=== PATIENT | female | born 1945 | race Caucasian/White ===

== ENCOUNTER → 2017-06-01 | Outpatient (CLI) | payer MEDICARE ==
[2017-06-01 13:20] LABS: HCT 36.6 % (34.0-46.0); HGB 11.7 gm/dL (11.4-16.0); MCH 28.9 pg (25.0-35.0); MCV 90.4 fL (80.0-100.0); Mean Platelet Volume 9.4; Platelet Count 229 k/uL (150-450); RBC 4.05 m/uL (3.80-5.40); RDW 13.9 % (11.5-15.5); WBC 4.2 k/uL (3.8-10.6)
[2017-06-01 13:25] LABS: Partial Thromboplastin Time 24.2 sec (22.0-30.0); Prothrombin Time 9.9 sec (9.0-12.0)
[2017-06-01 13:28] LABS: Albumin 4.6 g/dL (3.5-5.0); Calcium 10.8 mg/dL (8.4-10.2); Total Bilirubin 0.5 mg/dL (0.2-1.3); Total Protein 7.8 g/dL (6.3-8.2)
[2017-06-01 13:37] LABS: Amorphous Sediment,Urine Rare /hpf; Granular Casts,Urine 3 /lpf (0); Hyaline Casts,Urine 3 /lpf (0-2); Mucus,Urine Rare /hpf; RBC,Urine 3 /hpf (0-5); Squamous Epithelial Cell,Urine <1 /hpf (0-4); WBC,Urine <1 /hpf (0-5)
[2017-06-01 14:11] LABS: Appearance,Urine Clear (Clear); Bilirubin,Urine Negative (Negative); Blood,Urine Negative (Negative); Color,Urine Yellow; Glucose,Urine (UA) Negative (Negative); Ketones,Urine Negative (Negative); Leukocyte Esterase,Urine Negative (Negative); Nitrite,Urine Negative (Negative); Protein,Urine Negative (Negative); Specific Gravity,Urine 1.018 (1.001-1.035); Urobilinogen,Urine <2.0 mg/dL (<2.0)
== END | disposition home or self-care (01) ==
LOC: LABPAT 12:25
PROVIDERS: ATTEND Orthopaedic Surgery
DX: Z01.812 Encounter for preprocedural laboratory examination (principal)
CPT/HCPCS: 36415; 80053; 81003; 85027; 85610; 85730; 87070

== ENCOUNTER → 2017-06-18 | Outpatient (CLI) | payer MEDICARE | LOC: LABPAT 14:19 | PROVIDERS: ATTEND Orthopaedic Surgery | DX: Z01.812 Encounter for preprocedural laboratory examination (principal) | CPT/HCPCS: 36415; 86850; 86900; 86901 ==

== ENCOUNTER 2017-06-26 09:50 | Inpatient (IN) | payer MEDICARE ==
[~2017-06-26 09:50] MED LIST: ACETAMINOPHEN TAB 500 MG TAB PO ONE; DEXAMETHASONE SOD PHOSPHATE 10 MG/ML 1 ML VIAL IV ONE; LACTATED RINGERS 1,000 ML IV SCH; MELOXICAM 7.5 MG TAB PO ONE; MIDAZOLAM 2 MG/2 ML VIAL IV PRN; ONDANSETRON 4 MG/2 ML VIAL IVP ONE; ROPIVACAINE 246.25 MG, EPINEPHrine 0.5 MG, KETOROLAC 30 MG, cloNIDine HCL/PF 80 MCG, WA... MISCELLANE ONE; TRANEXAMIC ACID 1,000 MG in SODIUM CHLORIDE 0.9% 50 ML IVPB ONE; ceFAZolin IN SWFI 2 GM/20 ML SYRINGE IVP ONE; fentaNYL (PF) 50 MCG/ML 2 ML AMP IV PRN
[2017-06-26] MEDS ORDERED: LIDOCAINE 1% 20 ML VIAL (10MG/ML) FOR IV START INTRADERMA ONE (11:47)
[2017-06-26] MEDS ORDERED: fentaNYL (PF) 50 MCG/ML 2 ML AMP ONE (12:23)
[2017-06-26] MEDS ORDERED: PROPOFOL 10 MG/ML 20 ML VIAL IV ONE (12:23)
[2017-06-26] MEDS ORDERED: HEPARIN SODIUM,PORCINE 10,000 UNIT/ML 1 ML VIAL ONE (12:23)
[2017-06-26] MEDS ORDERED: TRANEXAMIC ACID 1,000 MG/10 ML VIAL ONE (12:23)
[2017-06-26] MEDS ORDERED: MIDAZOLAM 2 MG/2 ML VIAL ONE (12:23)
[2017-06-26] MEDS ORDERED: SODIUM CHLORIDE 0.9% 100 ML BAG ONE (12:23)
[2017-06-26] MEDS ORDERED: ePHEDrine SULFATE/0.9% NACL/PF 50 MG/5 ML SYRINGE IV ONE (12:23)
[2017-06-26] MEDS ORDERED: PHENYLEPHRINE-0.9% NACL SYG 1 MG/10 ML SYRINGE ONE (12:23)
[2017-06-26] MEDS ORDERED: LACTATED RINGERS 1,000 ML BAG IV ONE (12:23)
[2017-06-26] MEDS ORDERED: LACTATED RINGERS 1,000 ML IV ONE (13:35)
--- NOTE | 2017-06-26 14:00 | P.OP ---
Date of Procedure: 06/26/17 Preoperative Diagnosis: Severe osteoarthritis right hip Postoperative Diagnosis: Severe osteoarthritis right hip Procedure(s) Performed: Right total hip arthroplasty with a direct anterior approach Implants: Gtz and nephew Polarstem size 4 standard Gtz & Nephew R3, 3 hole acetabular shell, 48 mm Gtz & Nephew reflection 6.5 mm cancellus screw, 20 mm 2 Gtz & Nephew R3, XLPE 20 acetabular liner Gtz & Nephew Oxinium femoral head 32 m, +0 All components were press-fit. The articulation is Oxinium on polyethylene. Anesthesia: spinal Surgeon: Harvey Bruner Motor Transport Inspector #1: Catie Davis Estimated Blood Loss (ml): 100 Pathology: other (Femoral head) Condition: stable Disposition: PACU Indications for Procedure: After failure of conservative treatment we discussed the surgical and nonsurgical treatment options at length. Patient wishes to proceed with a total hip arthroplasty with a direct anterior approach. Complications specific to this procedure were discussed at length, including but not limited to infection, leg length discrepancy, dislocation, and nerve injury. Patient is aware of all these complications and informed consent was obtained Operative Findings: The operative findings are consistent with severe osteoarthritis of the right hip Description of Procedure: Patient was seen and evaluated in the preoperative area, consent was reviewed, and the surgical site was marked with a skin marker. Patient was then brought to the operating room and given prophylactic antibiotics intravenously. 1 g of Tranexamic acid was also given. A spinal anesthetic was administered by the anesthesia department. The patient was then placed on the [place] table with the bony prominences well-padded. The hip area was then prepped and draped in usual sterile fashion. A universal timeout was then performed, which confirmed the patient's name, surgical site, ALLERGIES, and procedure being performed. Next the incision site was located at 1 cm distal and 1 cm lateral to the anterior superior iliac spine. The skin and subcutaneous tissues were sharply incised. Incision was carefully dissected down to the fascia overlying the tensor fascia claudia muscle. This fascia was then incised in line with the incision. Next, using blunt finger dissection, the tensor fascia claudia muscle was dissected off its investing fascia. The muscle was then carefully retracted laterally with a cobra retractor over the lateral neck of the femur. Next, the circumflex vessels were identified and cauterized using the AquaMantis device. The anterior hip capsule was then exposed. The capsule was then opened and an inverted T fashion. Cobra retractors were then placed intracapsularly. The proximal femur was then visualized. The femoral neck was then osteotomized appropriate level above the lesser trochanter. Small amount of traction was placed with the [place] table. A small wedge of bone was then removed from the remaining femoral head. Next, using a corkscrew femoral head was easily removed from the acetabulum. On gross visual inspection, the femoral head had complete loss of articular cartilage in multiple periarticular osteophytes. Attention was then turned to the acetabulum. the acetabulum was exposed and any remaining labrum was excised. Sequential reaming of the acetabulum was performed using fluoroscopic guidance. When the appropriate size was reached, a trial was then placed. The position and fit of the trial was checked with fluoroscopy. The trial was then removed. Then, using fluoroscopic guidance, the final implant was impacted at 20 of anteversion and 40 of abduction, and fully seated in the acetabulum. 2 screws were then placed in the acetabulum. Again fluoroscopy was used to check position of the screws. Next, the liner was then impacted, with a 20 elevated liner located in the anterior superior quadrant. Component locking was confirmed. Attention was then directed to the femur. With the aid of the [place] table, the femur was externally rotated to approximately 130, extended, and abducted under the opposite leg. A side hook was then placed under the proximal femur, and the side hook elevator was used to elevate the proximal femur. Retractors were then placed. A capsular release was performed, as well as a release of the conjoined tendon, which afforded excellent visualization of the proximal femur. Next, a box osteotome was used to lateralize the proximal femur. A hand crown pouncer was then used to locate the femoral canal. Sequential broaching was then performed with appropriate size which afforded excellent fixation in the proximal femur. A trial was then placed with appropriate head and neck, and the hip was gently reduced with the aid of the [place] table. Fluoroscopy was then used to check position of the components, as well as to ensure equal leg lengths. The hip was then gently dislocated and the trials were then removed. Final implants were then impacted and the hip was again reduced. Final fluoroscopic x-rays confirmed that the components were in anatomic position, as well as equal leg lengths. The hip was also taken through range of motion, and found to be stable. The hip was then copiously irrigated with antibiotic solution with pulsatile lavage. The hip was then irrigated with Irrisept solution. The soft tissues were then injected with a ropivacaine solution, which consisted of 246.25 mg of ropivacaine, 0.5 mg of epinephrine, 30 mg of Toradol, 80 g of clonidine, and 48.45 mL of sterile water, for a total of 100 mL of fluid injected. A second dose of 1 g of Tranexamic acid was also given. the fascia was then closed with 2-0 strata fix suture. The subcutaneous tissue was closed with 3-0 Vicryl. The subcuticular tissue was closed with 3-0 strata fix suture. The skin was then closed with Dermabond glue and a sterile silver dressing. The patient was then transferred to the recovery room in stable condition. The legal assistant FEI Maradiaga was required due to the complexity of surgery, and the need for skilled surgical services assistant for positioning, draping, exposure, retraction, and closure of the wound.
--- NOTE | 2017-06-26 14:06 | FL ---
Fluoroscopy INDICATION: Pain FINDINGS: Fluoroscopy time: 54 seconds. Images obtained: 4. IMPRESSIONS: 1. Documentation of fluoroscopy.
--- NOTE | 2017-06-26 14:06 | XR ---
Fluoroscopy INDICATION: Right hip replacement, pain FINDINGS: Fluoroscopy time: 54 seconds. Images obtained: 4. IMPRESSIONS: 1. Documentation of fluoroscopy.
[2017-06-26] MEDS ORDERED: HYDROmorphone 0.5 MG/0.5 ML SYRINGE IVP PRN ×3 (14:17)
[2017-06-26] MEDS ORDERED: HYDROcodone/APAP 5-325MG 1 EACH TAB PO PRN (14:17)
[2017-06-26] MEDS ORDERED: NALOXONE 0.4 MG/ML 1 ML VIAL IV PRN (14:17)
[2017-06-26] MEDS ORDERED: DIAZEPAM 5 MG TAB PO PRN ×2 (14:17)
[2017-06-26] MEDS ORDERED: ONDANSETRON 4 MG/2 ML VIAL IVP PRN (14:17)
[2017-06-26] MEDS ORDERED: MAGNESIUM HYDROXIDE 2,400 MG/10 ML CUP PO PRN (14:17)
[2017-06-26] MEDS ORDERED: hydrOXYzine PAMOATE 25 MG CAP PO PRN (14:17)
--- NOTE | 2017-06-26 14:25 | XR ---
EXAMINATION TYPE: XR Hip Limited RT DATE OF EXAM: 06/26/2017 COMPARISON: NONE HISTORY: Right hip prosthesis placement TECHNIQUE: Single AP view right hip FINDINGS: Postsurgical changes are within the soft tissues. There is a right femoral component and ac etabular component which is been placed. No acute fractures are evident. IMPRESSION: 1. No acute fractures post right hip replacement.
[2017-06-26] MEDS: HYDROcodone/APAP 5-325MG 1 EACH TAB PO PRN ×2 (17:22→23:35)
[2017-06-26] MEDS: SODIUM CHLORIDE 0.9% 1,000 ML IV SCH (17:24)
--- NOTE | 2017-06-26 18:08 | CONS ---
CONSULTATION REASON FOR CONSULTATION: Advice regarding hypertension, hyperlipidemia, requested by Orthopedic Surgery. HISTORY OF PRESENT ILLNESS: This 72-year-old woman with past medical history of hypertension, hyperlipidemia, history of DJD, history of bladder surgery, history of hysterectomy, being followed by Dr. Marc in the outpatient setting, was admitted after right total hip joint arthroplasty. There is no history of chest pain, palpitation, headache, loss of consciousness, seizures, nausea, vomiting, diarrhea, fever, rigor or chills. PAST MEDICAL HISTORY: 1. Hypertension. 2. Hyperlipidemia. 3. History of DJD. HOME MEDICATIONS: The home medications, which are reviewed, include: 1. Triamterene (Dyazide) 1 p.o. daily. 2. Pravachol 20 mg at bedtime. 3. Ditropan XL 10 mg daily. 4. Procardia XL 60 mg daily. 5. Multivitamins 1 p.o. daily. 6. Tricor 145 mg p.o. daily. 7. Calcium 1200 mg p.o. daily. 8. Tylenol 650 q.8 p.r.n. ALLERGIES: NONE. FAMILY HISTORY: History of colon cancer. SOCIAL HISTORY: No history of smoking. REVIEW OF SYSTEMS: ENT: No diminished hearing. No diminished vision. CARDIOVASCULAR SYSTEM: No angina, palpitations. RESPIRATORY SYSTEM: No cough, hemoptysis. GI: No nausea, vomiting. : No dysuria or retention. NERVOUS SYSTEM: No numbness, weakness. ALLERGY/IMMUNOLOGY: No asthma, hayfever. MUSCULOSKELETAL: As mentioned earlier. HEMATOLOGY/ONCOLOGY: No history of anemia. ENDOCRINE: No history of diabetes, hypothyroidism. CONSTITUTIONAL: As mentioned earlier. DERMATOLOGY: Negative. RHEUMATOLOGY: Negative. PSYCHIATRY: As mentioned earlier. PHYSICAL EXAMINATION: Patient is alert and oriented x3. Pulse is 83, blood pressure 133/61, respirations 16, temperature 98 degrees, pulse ox 94% on room air. HEENT: Conjunctivae normal. Oral mucosa moist. NECK: No jugular venous distention. No carotid bruit. No lymph node enlargement. CARDIOVASCULAR SYSTEM: S1, S2 muffled. No S3. No S4. RESPIRATORY SYSTEM: Breath sounds diminished at the bases. No rhonchi. No crackles. ABDOMEN: Soft, non-tender. No mass palpable. LEGS: Status post hip arthroplasty, right. NERVOUS SYSTEM: Higher functions as mentioned earlier. Moves all 4 limbs. No focal motor or sensory deficit. LYMPHATIC: No lymph node palpable in neck or axillae. SKIN: No ulcer, rash, bleeding. LABS: Not available at this time. The previous labs prior to surgery showed hematology, coags and chemistry essentially within normal limits. ASSESSMENT: 1. Status post right total hip joint arthroplasty. 2. Hypertension. 3. Hyperlipidemia. 4. History of degenerative joint disease. 5. History of right breast cancer. RECOMMENDATIONS AND DISCUSSION: In this 72-year-old woman who presented with multiple complex medical issues, we will monitor the patient closely, continue the current medications, continue symptomatic treatment. Otherwise I would recommend resuming the home medications and closely monitor. DVT prophylaxis. Incentive spirometry. The patient may be asked to follow with Dr. Marc closely after discharge. Thank you, Dr. Bruner, for letting us participate in the care of this patient. MMEVELIAL / CASSANDRAN: [id number] /
[2017-06-26 20:08] VITALS: RESP 18
[2017-06-26 20:15] VITALS: BMI 23.3
[2017-06-26] MEDS: ceFAZolin IN SWFI 2 GM/20 ML SYRINGE IVP SCH (20:15)
[2017-06-26] MEDS: ASPIRIN 325 MG TAB PO SCH (20:15)
[2017-06-26] MEDS ORDERED: PRAVASTATIN SODIUM 20 MG TAB PO SCH (21:00)
[2017-06-26] MEDS ORDERED: SENNOSIDES-DOCUSATE SODIUM 1 EACH TAB PO SCH (21:00)
[2017-06-27] MEDS: ceFAZolin IN SWFI 2 GM/20 ML SYRINGE IVP SCH (05:12)
[2017-06-27] MEDS: SODIUM CHLORIDE 0.9% 1,000 ML IV SCH (05:13)
[2017-06-27] MEDS: HYDROcodone/APAP 5-325MG 1 EACH TAB PO PRN ×2 (07:41→13:31)
[2017-06-27 07:42] VITALS: BP 116/58; TEMP 98.9
[2017-06-27 07:49] LABS: Basophils % (A) 1 %; Eosinophils % (A) 1 %; HCT 30.2 % (34.0-46.0); Lymphocytes # (A) 1.4 k/uL (1.0-4.8); Lymphocytes % (A) 32 %; MCH 28.6 pg (25.0-35.0); MCHC 32.3 g/dL (31.0-37.0); MCV 88.5 fL (80.0-100.0); Mean Platelet Volume 7.8; Monocytes # (A) 0.5 k/uL (0-1.0); Monocytes % (A) 10 %; Neutrophils # (A) 2.4 k/uL (1.3-7.7); Neutrophils % (A) 53 %; Platelet Count 239 k/uL (150-450); RBC 3.42 m/uL (3.80-5.40); RDW 13.4 % (11.5-15.5); WBC 4.5 k/uL (3.8-10.6)
[2017-06-27 07:54] LABS: HGB 9.8 gm/dL (11.4-16.0)
[2017-06-27 08:41] VITALS: PULSE 70
--- NOTE | 2017-06-27 08:59 | P.DS ---
Providers Date of admission: 06/26/17 11:10 Expected date of discharge: 06/27/17 Attending physician: Harvey Bruner Consults: 06/26/17 14:17 Consult Physician Routine Consulting Provider: Carmen Marc Consult Reason/Comments: medical management Do you want consulting provider notified?: Yes 06/26/17 15:17 Consult Physician Routine Consulting Provider: Bunny Plascencia Consult Reason/Comments: medical management Do you want consulting provider notified?: Yes Primary care physician: Carmen Marc - Discharge Diagnosis(es) (1) Primary osteoarthritis of right hip Current Visit: Yes Status: Acute (2) S/P total hip arthroplasty Current Visit: Yes Status: Acute Hospital Course: This is a 72-year-old female with known history of degenerative arthritis of the right hip. The patient presents for evaluation. After discussion and consideration patient elects to proceed with total hip arthroplasty. The patient is seen preoperatively by Dr. Bruner and medically cleared for surgery by their primary care physician. Patient is admitted to [facility] on 06/26/2017 for total hip arthroplasty. The procedures performed without complication or sequelae. The patient is doing well postoperatively. Labs and vital signs are stable on day of discharge. On day of discharge patient's hip incision is healing well. There is minimal erythema. There is no drainage noted at this time. There is minimal soft tissue swelling to the hip and thigh. Patient has full foot and ankle motion without difficulty or pain. Neurovascular status to the right lower extremity is intact. Patient is discharged home in good condition. Please see med rec for accurate list of home medications. Plan - Discharge Summary Discharge Rx Participant: Yes New Discharge Prescriptions: New Aspirin 325 mg PO BID #60 tab HYDROcodone/APAP 5-325MG [[place] 5-325] 1 - 2 tab PO Q4-6H PRN #90 tab PRN Reason: Pain Sennosides [Senokot] 1 tab PO BID #60 tablet No Action Oxybutynin Chloride [Ditropan XL] 10 mg PO DAILY Triamterene-Hctz 37.5-25Mg [Dyazide 37.5-25 Capsule] 1 cap PO DAILY Pravastatin Sodium [Pravachol] 20 mg PO HS NIFEdipine [Procardia XL] 60 mg PO DAILY Multivit-Min/Iron/Folic/Lutein [Centrum Silver Women Tablet] 1 tab PO DAILY Fenofibrate Nanocrystallized [Tricor] 145 mg PO DAILY Calcium Carbonate [Calcium] 1,200 mg PO DAILY Acetaminophen [Tylenol Arthritis] 650 mg PO Q8HR PRN PRN Reason: Pain Discharge Medication List Acetaminophen [Tylenol Arthritis] 650 mg PO Q8HR PRN 06/05/17 [History] Calcium Carbonate [Calcium] 1,200 mg PO DAILY 06/05/17 [History] Fenofibrate Nanocrystallized [Tricor] 145 mg PO DAILY 06/05/17 [History] Multivit-Min/Iron/Folic/Lutein [Centrum Silver Women Tablet] 1 tab PO DAILY 02/22 [History] NIFEdipine [Procardia XL] 60 mg PO DAILY 06/05/17 [History] Oxybutynin Chloride [Ditropan XL] 10 mg PO DAILY 06/05/17 [History] Pravastatin Sodium [Pravachol] 20 mg PO HS 06/05/17 [History] Triamterene-Hctz 37.5-25Mg [Dyazide 37.5-25 Capsule] 1 cap PO DAILY 06/05/17 [ History] Aspirin 325 mg PO BID #60 tab 06/27/17 [Rx] HYDROcodone/APAP 5-325MG [[place] 5-325] 1 - 2 tab PO Q4-6H PRN #90 tab 06/27/17 [ Rx] Sennosides [Senokot] 1 tab PO BID #60 tablet 06/27/17 [Rx] Follow up Appointment(s)/Referral(s): Harvey Bruner DO [Doctor of Osteopathic Medicine] - 2 Weeks Activity/Diet/Wound Care/Special Instructions: Weightbearing as tolerated with walker Leave dressing intact. Dressing may be removed by home care nurse in 10 days. May shower with dressing on. Follow-up with [facility] in 2 weeks, please call with any questions or concerns [phone] Discharge Disposition: HOME WITH HOME HEALTH SERVICES
[2017-06-27] MEDS ORDERED: TRIAMTERENE-HCTZ 37.5-25MG 1 EACH CAP PO SCH (09:00)
[2017-06-27] MEDS ORDERED: FENOFIBRATE 160 MG TAB PO SCH (09:00)
[2017-06-27] MEDS ORDERED: MELOXICAM 7.5 MG TAB PO SCH (09:00)
[2017-06-27] MEDS ORDERED: OXYBUTYNIN 10 MG TAB.ER.24 PO SCH (09:00)
[2017-06-27] MEDS: ASPIRIN 325 MG TAB PO SCH (10:11)
[2017-06-27] MEDS ORDERED: CALCIUM CARBONATE 500 MG CHEWABLE PO SCH (12:00)
[2017-06-27] MEDS ORDERED: MULTIVITAMINS, THERA 1 EACH TAB PO SCH (12:00)
--- NOTE | 2017-06-27 15:30 | PN ---
PROGRESS NOTE DATE OF SERVICE: 06/27/2017 This is a 72-year-old woman who was admitted after right total knee arthroplasty, improved significantly. No chest pain, no palpitation, no fever. Orthopedics is following the patient closely. The blood pressure is well-controlled. PHYSICAL EXAM: Alert and oriented x3, pulse 79, blood pressure 116/58, respiration 18, temperature 98.9, pulse ox 97% on room air. HEENT: Conjunctivae normal. NECK: No jugular venous distension. CARDIOVASCULAR SYSTEM: S1, S2, muffled. RESPIRATORY: Breath sounds diminished at the bases, no rhonchi, no crackles. ABDOMEN: Soft, nontender. No mass palpable. LEGS: Status post hip surgery. NERVOUS SYSTEM: Higher functions as mentioned earlier. Moves all four limbs. LYMPHATICS: No lymph nodes enlargement in the neck or axillae. SKIN: No ulcer, rash or bleeding. LABS: Hemoglobin 9.8. ASSESSMENT: 1. Status post right total knee arthroplasty. 2. Hypertension. 3. Hyperlipidemia. 4. Degenerative joint disease. 5. History of right breast cancer. RECOMMENDATION: Continue current management and symptomatic treatment. Otherwise monitor closely and DVT prophylaxis. Incentive spirometry. Further recommendations to follow. MMODL / IJN: [id number] /
== END 2017-06-27 14:10 | disposition home health service (06) | DRG 470 ==
LOC: 2ORMAIN 11:10 → 3SUR 14:42
PROVIDERS: ADMIT Orthopaedic Surgery; ATTEND Orthopaedic Surgery
PROC: 0SR902Z Replacement of Right Hip Joint with Metal on Polyethylene Synthetic Substitute, Open Approach (ICD-10-PCS; principal; 2017-06-26 12:45)
DX: M16.11 Unilateral primary osteoarthritis, right hip (principal); E78.5 Hyperlipidemia, unspecified; I10 Essential (primary) hypertension; Z96.651 Presence of right artificial knee joint; Z79.899 Other long term (current) drug therapy; Z85.3 Personal history of malignant neoplasm of breast; Z90.710 Acquired absence of both cervix and uterus; Z98.890 Other specified postprocedural states; Z80.0 Family history of malignant neoplasm of digestive organs
CPT/HCPCS: 36415; 73501; 85025; 86850; 86891; 86900; 86901; 88300

== ENCOUNTER → 2017-08-10 | Outpatient (CLI) | payer MEDICARE ==
[2017-08-10 13:46] LABS: HCT 33.4 % (34.0-46.0); HGB 10.4 gm/dL (11.4-16.0); Hypochromasia Slight; MCH 28.3 pg (25.0-35.0); MCHC 31.2 g/dL (31.0-37.0); MCV 90.5 fL (80.0-100.0); Mean Platelet Volume 8.1; Platelet Count 296 k/uL (150-450); RBC 3.69 m/uL (3.80-5.40); RDW 14.9 % (11.5-15.5); WBC 3.6 k/uL (3.8-10.6)
[2017-08-10 13:51] LABS: Appearance,Urine Clear (Clear); Bilirubin,Urine Negative (Negative); Blood,Urine Negative (Negative); Color,Urine Yellow; Glucose,Urine (UA) Negative (Negative); Ketones,Urine Negative (Negative); Leukocyte Esterase,Urine Negative (Negative); Nitrite,Urine Negative (Negative); PH, Urine 6.5 (5.0-8.0); Protein,Urine Negative (Negative); Specific Gravity,Urine 1.018 (1.001-1.035)
[2017-08-10 13:56] LABS: Prothrombin Time 10.2 sec (9.0-12.0)
[2017-08-10 13:57] LABS: Albumin 4.2 g/dL (3.5-5.0); Calcium 10.1 mg/dL (8.4-10.2); Total Bilirubin 0.4 mg/dL (0.2-1.3); Total Protein 7.3 g/dL (6.3-8.2)
== END | disposition home or self-care (01) ==
LOC: LABPAT 12:58
PROVIDERS: ATTEND Orthopaedic Surgery
DX: Z01.812 Encounter for preprocedural laboratory examination (principal)
CPT/HCPCS: 36415; 80053; 81003; 85027; 85610; 85730; 87070

== ENCOUNTER → 2017-08-23 | Outpatient (CLI) | payer MEDICARE | END | disposition home or self-care (01) | LOC: LABWHC1 14:00 | PROVIDERS: ATTEND Orthopaedic Surgery | DX: Z01.812 Encounter for preprocedural laboratory examination (principal) | CPT/HCPCS: 36415; 86850; 86900; 86901 ==

== ENCOUNTER 2017-09-04 05:45 | Inpatient (IN) | payer MEDICARE ==
[2017-08-14 09:20] VITALS: BMI 23.3
[~2017-09-04 05:45] MED LIST changes: -LACTATED RINGERS 1,000 ML IV SCH; -ROPIVACAINE 246.25 MG, EPINEPHrine 0.5 MG, KETOROLAC 30 MG, cloNIDine HCL/PF 80 MCG, WA... MISCELLANE ONE
[2017-09-04] MEDS ORDERED: ROPIVACAINE 246.25 MG, EPINEPHrine 0.5 MG, KETOROLAC 30 MG, cloNIDine HCL/PF 80 MCG, WA... MISCELLANE ONE ×5 (06:15)
[2017-09-04] MEDS: LACTATED RINGERS 1,000 ML IV SCH (06:23)
[2017-09-04] MEDS ORDERED: HYDROmorphone 1 MG/ML 1 ML SYRINGE IVP PRN ×3 (06:56)
[2017-09-04] MEDS ORDERED: MAGNESIUM HYDROXIDE 2,400 MG/10 ML CUP PO PRN (06:56)
[2017-09-04] MEDS ORDERED: NALOXONE 0.4 MG/ML 1 ML VIAL IV PRN (06:56)
[2017-09-04] MEDS ORDERED: ONDANSETRON 4 MG/2 ML VIAL IVP PRN (06:56)
[2017-09-04] MEDS ORDERED: hydrOXYzine PAMOATE 25 MG CAP PO PRN (06:56)
[2017-09-04] MEDS ORDERED: DIAZEPAM 5 MG TAB PO PRN (06:56)
[2017-09-04] MEDS ORDERED: HEPARIN SODIUM,PORCINE 10,000 UNIT/ML 1 ML VIAL ONE (06:59)
[2017-09-04] MEDS ORDERED: MIDAZOLAM 2 MG/2 ML VIAL ONE (06:59)
[2017-09-04] MEDS ORDERED: PHENYLEPHRINE-0.9% NACL SYG 1 MG/10 ML SYRINGE ONE (06:59)
[2017-09-04] MEDS ORDERED: SODIUM CHLORIDE 0.9% IRRIG 1,000 ML BTL IRRIGATION ONE (06:59)
[2017-09-04] MEDS ORDERED: fentaNYL (PF) 50 MCG/ML 2 ML AMP ONE (06:59)
[2017-09-04] MEDS ORDERED: PROPOFOL 10 MG/ML 20 ML VIAL IV ONE (06:59)
[2017-09-04] MEDS ORDERED: ceFAZolin 3,000 MG in SODIUM CHLORIDE 0.9% IRRIGATIO 3,000 ML IRRIGATION ONE (07:32)
--- NOTE | 2017-09-04 08:23 | P.OP ---
Date of Procedure: 09/04/17 Preoperative Diagnosis: Severe osteoarthritis left hip Postoperative Diagnosis: Severe osteoarthritis left hip Procedure(s) Performed: Left total hip arthroplasty with a direct anterior approach Implants: Gtz and nephew Polarstem size 3 standard Gtz & Nephew R3, 3 hole acetabular shell, 48 mm Gtz & Nephew reflection 6.5 mm cancellus screw, 20 mm 2 Gtz & Nephew R3, XLPE 20 acetabular liner Gtz & Nephew Oxinium femoral head 32 m, +0 All components were press-fit. The articulation is Oxinium on polyethylene. Anesthesia: spinal Surgeon: Harvey Bruner Leather Coater #1: Catie Davis Estimated Blood Loss (ml): 100 Pathology: other (Femoral head) Condition: stable Disposition: PACU Indications for Procedure: After failure of conservative treatment we discussed the surgical and nonsurgical treatment options at length. Patient wishes to proceed with a total hip arthroplasty with a direct anterior approach. Complications specific to this procedure were discussed at length, including but not limited to infection, leg length discrepancy, dislocation, and nerve injury. Patient is aware of all these complications and informed consent was obtained Operative Findings: The operative findings are consistent with severe osteoarthritis of the left hip Description of Procedure: Patient was seen and evaluated in the preoperative area, consent was reviewed, and the surgical site was marked with a skin marker. Patient was then brought to the operating room and given prophylactic antibiotics intravenously. 1 g of Tranexamic acid was also given. A spinal anesthetic was administered by the anesthesia department. The patient was then placed on the [place] table with the bony prominences well-padded. The hip area was then prepped and draped in usual sterile fashion. A universal timeout was then performed, which confirmed the patient's name, surgical site, ALLERGIES, and procedure being performed. Next the incision site was located at 1 cm distal and 1 cm lateral to the anterior superior iliac spine. The skin and subcutaneous tissues were sharply incised. Incision was carefully dissected down to the fascia overlying the tensor fascia claudia muscle. This fascia was then incised in line with the incision. Next, using blunt finger dissection, the tensor fascia claudia muscle was dissected off its investing fascia. The muscle was then carefully retracted laterally with a cobra retractor over the lateral neck of the femur. Next, the circumflex vessels were identified and cauterized using the AquaMantis device. The anterior hip capsule was then exposed. The capsule was then opened and an inverted T fashion. Cobra retractors were then placed intracapsularly. The proximal femur was then visualized. The femoral neck was then osteotomized appropriate level above the lesser trochanter. Small amount of traction was placed with the [place] table. A small wedge of bone was then removed from the remaining femoral head. Next, using a corkscrew femoral head was easily removed from the acetabulum. On gross visual inspection, the femoral head had complete loss of articular cartilage in multiple periarticular osteophytes. Attention was then turned to the acetabulum. the acetabulum was exposed and any remaining labrum was excised. Sequential reaming of the acetabulum was performed using fluoroscopic guidance. When the appropriate size was reached, a trial was then placed. The position and fit of the trial was checked with fluoroscopy. The trial was then removed. Then, using fluoroscopic guidance, the final implant was impacted at 20 of anteversion and 40 of abduction, and fully seated in the acetabulum. 2 screws were then placed in the acetabulum. Again fluoroscopy was used to check position of the screws. Next, the liner was then impacted, with a 20 elevated liner located in the anterior superior quadrant. Component locking was confirmed. Attention was then directed to the femur. With the aid of the [place] table, the femur was externally rotated to approximately 130, extended, and abducted under the opposite leg. A side hook was then placed under the proximal femur, and the side hook elevator was used to elevate the proximal femur. Retractors were then placed. A capsular release was performed, as well as a release of the conjoined tendon, which afforded excellent visualization of the proximal femur. Next, a box osteotome was used to lateralize the proximal femur. A hand inserter operator was then used to locate the femoral canal. Sequential broaching was then performed with appropriate size which afforded excellent fixation in the proximal femur. A trial was then placed with appropriate head and neck, and the hip was gently reduced with the aid of the [place] table. Fluoroscopy was then used to check position of the components, as well as to ensure equal leg lengths. The hip was then gently dislocated and the trials were then removed. Final implants were then impacted and the hip was again reduced. Final fluoroscopic x-rays confirmed that the components were in anatomic position, as well as equal leg lengths. The hip was also taken through range of motion, and found to be stable. The hip was then copiously irrigated with antibiotic solution with pulsatile lavage. The hip was then irrigated with Irrisept solution. The soft tissues were then injected with a ropivacaine solution, which consisted of 246.25 mg of ropivacaine, 0.5 mg of epinephrine, 30 mg of Toradol, 80 g of clonidine, and 48.45 mL of sterile water, for a total of 100 mL of fluid injected. A second dose of 1 g of Tranexamic acid was also given. the fascia was then closed with 2-0 strata fix suture. The subcutaneous tissue was closed with 3-0 Vicryl. The subcuticular tissue was closed with 3-0 strata fix suture. The skin was then closed with Dermabond glue and a sterile silver dressing. The patient was then transferred to the recovery room in stable condition. The tiler's assistant FEI Maradiaga was required due to the complexity of surgery, and the need for skilled manager surgical for positioning, draping, exposure, retraction, and closure of the wound.
[2017-09-04] MEDS: ASPIRIN 325 MG TAB PO SCH ×2 (09:17→19:56)
[2017-09-04] MEDS: SODIUM CHLORIDE 0.9% 1,000 ML IV SCH ×2 (09:37→19:57)
--- NOTE | 2017-09-04 09:38 | XR ---
EXAMINATION TYPE: XR Hip Limited LT DATE OF EXAM: 09/04/2017 COMPARISON: NONE HISTORY: 72-year-old female status post left hip surgery, assess surgical alignment TECHNIQUE: Single AP view FINDINGS: Image shows placement of left total hip arthroplasty. The hip is adducted. Alignment grossly anatomic . Soft tissue air related to recent operation. Both acetabular cup and femoral stem components appear well seated. No periprosthetic fracture seen. IMPRESSION: Uncomplicated postoperative appearance left total hip arthroplasty.
--- NOTE | 2017-09-04 09:43 | XR ---
EXAMINATION TYPE: XR Hip Limited LT, FL guidance operating room DATE OF EXAM: 09/04/2017 COMPARISON: NONE HISTORY: 72 year-old female with left hip anterior placement FINDINGS: 2 intraoperative fluoroscopic images during left hip total arthroplasty. FLUOROSCOPY Fluoroscopy time of 50 seconds was used during anterior left hip replacement. 2 image/s document/s t he procedure. IMPRESSION: Intraoperative fluoroscopy as above.
[2017-09-04 12:09] VITALS: RESP 16
--- NOTE | 2017-09-04 13:23 | P.CONS ---
History of Present Illness - Reason for Consult Recommendations regarding antihypertensive medications - History of Present Illness She is a pleasant 72-year-old female admitted for left hip arthroplasty sepsis and underwent surgery today patient is postoperative day 0. Patient does have history of hypertension that use negative endocrine and a diuretic therapy at home both of which are being held to prevent perioperative hypotension. Patient denied fever chills chest pain nausea vomiting patient is able to urinate Gal[place] catheter was removed. Pain well controlled Review of Systems REVIEW OF SYSTEMS: CONSTITUTIONAL: No fever, no malaise, no fatigue. HEENT: No recent visual problems or hearing problems. Denied any sore throat. CARDIOVASCULAR: No chest pain, orthopnea, PND, no palpitations, no syncope. PULMONARY: No shortness of breath, no cough, no hemoptysis. GASTROINTESTINAL: No diarrhea, no nausea, no vomiting, no abdominal pain. Normoactive bowel sounds. NEUROLOGICAL: No headaches, no weakness, no numbness. HEMATOLOGICAL: Denies any bleeding or petechiae. GENITOURINARY: Denies any burning micturition, frequency, or urgency. MUSCULOSKELETAL/RHEUMATOLOGICAL: Denies any joint pain, swelling, or any muscle pain. ENDOCRINE: Denies any polyuria or polydipsia. The rest of the 14-point review of systems is negative. Past Medical History Past Medical History: Cancer, Hyperlipidemia, Hypertension, Osteoarthritis (OA) Additional Past Medical History / Comment(s): HX RIGHT BREAST CANCER WITH RADIATION (2008), PNEUMONIA (JAN 2017), FLU (FEB 2017), ARTHRITIS BOTH HIPS- USES CANE & WALKER., Urinary LEAKAGE- WEARS PADS. History of Any Multi-Drug Resistant Organisms: None Reported Past Surgical History: Bladder Surgery, Breast Surgery, Hysterectomy Additional Past Surgical History / Comment(s): BREAST LUMPECTOMY, HYSTERECTOMY WITH BLADDER SUSPENSION, ANTERIOR TOTAL RIGHT HIP ARTHROPLASTY 06-26-2017 Past Anesthesia/Blood Transfusion Reactions: No Reported Reaction Additional Past Anesthesia/Blood Transfusion Reaction / Comm: no hx blood transfusion Past Psychological History: No Psychological Hx Reported Smoking Status: Never smoker Past Alcohol Use History: Daily Additional Past Alcohol Use History / Comment(s): 1 GLASS WINE DAILY. Past Drug Use History: None Reported - Past Family History Father Family Medical History: Cancer Additional Family Medical History / Comment(s): FROM COLON CANCER Medications and Allergies Home Medications Medication Instructions Recorded Confirmed Type Acetaminophen [Tylenol Arthritis] 650 mg PO Q8HR PRN 05/01/18 07/31/18 History Calcium Carbonate [Calcium] 1,200 mg PO DAILY 06/05/17 09/04/17 History Fenofibrate Nanocrystallized 145 mg PO DAILY 06/05/17 09/04/17 History [Tricor] Multivit-Min/Iron/Folic/Lutein 1 tab PO DAILY 06/05/17 09/04/17 History [Centrum Silver Women Tablet] NIFEdipine [Procardia XL] 60 mg PO QAM 06/05/17 09/04/17 History Pravastatin Sodium [Pravachol] 20 mg PO HS 06/05/17 09/04/17 History Triamterene-Hctz 37.5-25Mg 1 cap PO DAILY 06/05/17 09/04/17 History [Dyazide 37.5-25 Capsule] HYDROcodone/APAP 5-325MG [[place] 1 - 2 tab PO Q4-6H PRN #90 tab 06/27/17 Rx 5-325] Allergies Allergy/AdvReac Type Severity Reaction Status Date / Time No Known Allergies Allergy Verified 09/04/17 09:22 Physical Exam Vitals: Vital Signs Temp Pulse Pulse Resp BP Pulse Ox 09/04/17 11:00 85 16 123/66 94 L 09/04/17 10:45 82 16 120/77 95 09/04/17 10:30 88 16 122/68 94 L 09/04/17 10:15 85 16 111/66 95 09/04/17 10:00 90 16 115/61 95 09/04/17 09:45 94 16 125/74 94 L 09/04/17 09:30 87 16 122/71 95 09/04/17 09:15 81 94 16 116/66 95 09/04/17 09:00 97.7 F 87 88 16 103/63 97 09/04/17 08:45 91 18 131/60 93 L 09/04/17 08:37 97.5 F L 90 11 L 124/60 96 09/04/17 06:16 98.9 F 78 16 148/67 98 Intake and Output 09/03/17 09/04/17 09/04/17 22:59 06:59 14:59 Intake Total 600 461 Output Total 400 Balance 600 61 Intake: IV 600 461 Sodium Chloride 0.9% 1, 260 000 ml @ 65 mls/hr IV . [id number] [facility] Rx#:[id number] Output: Urine 300 Estimated Blood Loss 100 Other: Voiding Method Toilet Weight 63.503 kg PHYSICAL EXAMINATION: GENERAL: The patient is alert and oriented x3, not in any acute distress. Well developed, well nourished. HEENT: Pupils are round and equally reacting to light. EOMI. No scleral icterus. No conjunctival pallor. Normocephalic, atraumatic. No pharyngeal erythema. No thyromegaly. CARDIOVASCULAR: S1 and S2 present. No murmurs, rubs, or gallops. PULMONARY: Chest is clear to auscultation, no wheezing or crackles. ABDOMEN: Soft, nontender, nondistended, normoactive bowel sounds. No palpable organomegaly. MUSCULOSKELETAL: Deferred to orthopedic surgery EXTREMITIES: No cyanosis, clubbing, or pedal edema. NEUROLOGICAL: Gross neurological examination did not reveal any focal deficits. SKIN: No rashes. Assessment and Plan Plan: -Hypertension: Hold off had [place] antidepressant medications to prevent perioperative hypotension will be resumed as needed depending on her vitals here. -Hyperlipidemia continue with fenofibrate and pravastatin -Left hip arthroplasty: Due to prophylaxis and pain management as per primary service. -Osteoarthritis primary
[2017-09-04] MEDS ORDERED: HYDROcodone/APAP 5-325MG 1 EACH TAB ONE (13:54)
[2017-09-04] MEDS: HYDROcodone/APAP 5-325MG 1 EACH TAB PO PRN ×2 (13:55→19:56)
[2017-09-04] MEDS: ceFAZolin IN SWFI 2 GM/20 ML SYRINGE IVP SCH ×2 (15:24→22:19)
[2017-09-04] MEDS ORDERED: SENNOSIDES-DOCUSATE SODIUM 1 EACH TAB PO SCH (21:00)
[2017-09-04] MEDS ORDERED: PRAVASTATIN SODIUM 20 MG TAB PO SCH (21:00)
[2017-09-05] MEDS: HYDROcodone/APAP 5-325MG 1 EACH TAB PO PRN ×2 (02:21→08:21)
[2017-09-05] MEDS: LACTATED RINGERS 1,000 ML IV SCH (05:32)
[2017-09-05 07:48] LABS: Basophils % (A) 0 %; Eosinophils % (A) 1 %; HCT 26.5 % (34.0-46.0); Hypochromasia Moderate; Lymphocytes # (A) 1.3 k/uL (1.0-4.8); Lymphocytes % (A) 39 %; MCH 28.3 pg (25.0-35.0); MCHC 31.3 g/dL (31.0-37.0); MCV 90.7 fL (80.0-100.0); Mean Platelet Volume 7.5; Monocytes # (A) 0.5 k/uL (0-1.0); Monocytes % (A) 14 %; Neutrophils # (A) 1.4 k/uL (1.3-7.7); Neutrophils % (A) 44 %; Platelet Count 188 k/uL (150-450); RBC 2.93 m/uL (3.80-5.40); WBC 3.3 k/uL (3.8-10.6)
[2017-09-05 07:50] VITALS: BP 108/53; PULSE 77; TEMP 98.7
[2017-09-05 07:51] LABS: HGB 8.3 gm/dL (11.4-16.0)
--- NOTE | 2017-09-05 08:09 | P.DS ---
Providers Date of admission: 09/04/17 05:45 Expected date of discharge: 09/05/17 Attending physician: Harvey Bruner Consults: 09/04/17 06:56 Consult Physician Routine Consulting Provider: Bunny Plascencia Consult Reason/Comments: medical management Do you want consulting provider notified?: Yes Primary care physician: Carmen Marc - Discharge Diagnosis(es) (1) Primary osteoarthritis of left hip Current Visit: Yes Status: Acute (2) S/P total hip arthroplasty Current Visit: Yes Status: Acute Hospital Course: This is a 72-year-old female with known history of degenerative arthritis of the left hip. The patient presents for evaluation. After discussion and consideration patient elects to proceed with total hip arthroplasty. The patient is seen preoperatively by Dr. Bruner and medically cleared for surgery by their primary care physician. Patient is admitted to [facility] on 09/04/2017 for total hip arthroplasty. The procedures performed without complication or sequelae. The patient is doing well postoperatively. Labs and vital signs are stable on day of discharge. On day of discharge patient's hip incision is healing well. There is minimal erythema. There is no drainage noted at this time. There is minimal soft tissue swelling to the hip and thigh. Patient has full foot and ankle motion without difficulty or pain. Neurovascular status to the left lower extremity is intact. Patient is discharged home in good condition. Please see med rec for accurate list of home medications. Plan - Discharge Summary Discharge Rx Participant: Yes New Discharge Prescriptions: New Aspirin 325 mg PO BID #60 tab HYDROcodone/APAP 5-325MG [[place] 5-325] 1 - 2 tab PO Q4-6H PRN #84 tab PRN Reason: Pain Sennosides [Senokot] 1 tab PO BID #60 tablet No Action Triamterene-Hctz 37.5-25Mg [Dyazide 37.5-25 Capsule] 1 cap PO DAILY Pravastatin Sodium [Pravachol] 20 mg PO HS NIFEdipine [Procardia XL] 60 mg PO QAM Multivit-Min/Iron/Folic/Lutein [Centrum Silver Women Tablet] 1 tab PO DAILY Fenofibrate Nanocrystallized [Tricor] 145 mg PO DAILY Calcium Carbonate [Calcium] 1,200 mg PO DAILY Acetaminophen [Tylenol Arthritis] 650 mg PO Q8HR PRN PRN Reason: Pain HYDROcodone/APAP 5-325MG [[place] 5-325] 1 - 2 tab PO Q4-6H PRN #90 tab PRN Reason: Pain Discharge Medication List Acetaminophen [Tylenol Arthritis] 650 mg PO Q8HR PRN 06/05/17 [History] Calcium Carbonate [Calcium] 1,200 mg PO DAILY 06/05/17 [History] Fenofibrate Nanocrystallized [Tricor] 145 mg PO DAILY 06/05/17 [History] Multivit-Min/Iron/Folic/Lutein [Centrum Silver Women Tablet] 1 tab PO DAILY 02/22 [History] NIFEdipine [Procardia XL] 60 mg PO QAM 06/05/17 [History] Pravastatin Sodium [Pravachol] 20 mg PO HS 06/05/17 [History] Triamterene-Hctz 37.5-25Mg [Dyazide 37.5-25 Capsule] 1 cap PO DAILY 06/05/17 [ History] HYDROcodone/APAP 5-325MG [[place] 5-325] 1 - 2 tab PO Q4-6H PRN #90 tab 06/27/17 [ Rx] Aspirin 325 mg PO BID #60 tab 09/05/17 [Rx] HYDROcodone/APAP 5-325MG [[place] 5-325] 1 - 2 tab PO Q4-6H PRN #84 tab 09/05/17 [ Rx] Sennosides [Senokot] 1 tab PO BID #60 tablet 09/05/17 [Rx] Follow up Appointment(s)/Referral(s): Harvey Bruner DO [Doctor of Osteopathic Medicine] - 2 Weeks Activity/Diet/Wound Care/Special Instructions: Weightbearing as tolerated with walker Leave dressing intact. Dressing may be removed by home care nurse in 10 days. May shower with dressing on. Follow-up with [facility] in 2 weeks, please call with any questions or concerns [phone] Discharge Disposition: HOME WITH HOME HEALTH SERVICES
[2017-09-05] MEDS: ASPIRIN 325 MG TAB PO SCH (08:18)
[2017-09-05] MEDS ORDERED: FENOFIBRATE 160 MG TAB PO SCH (09:00)
[2017-09-05] MEDS ORDERED: MELOXICAM 7.5 MG TAB PO SCH (09:00)
[2017-09-05] MEDS: SODIUM CHLORIDE 0.9% 1,000 ML IV SCH (12:37)
--- NOTE | 2017-09-05 14:53 | P.PN ---
Subjective No overnight events patient is clinically doing well postoperative day one patient is being discharged today. Objective - Vital Signs Vital signs: Vital Signs Temp 98.7 F 09/05/17 07:15 Pulse 77 09/05/17 07:15 Resp 16 09/05/17 07:15 BP 108/53 09/05/17 07:15 Pulse Ox 95 09/05/17 07:15 Intake & Output 09/04/17 09/05/17 09/05/17 18:59 06:59 18:59 Intake Total 461 1405 Output Total 400 Balance 61 1405 Weight 63.503 kg Intake: IV 461 Sodium Chloride 0.9% 1, 260 000 ml @ 65 mls/hr IV . [id number] [facility] Rx#:[id number] Intake, IV Titration 625 Amount Sodium Chloride 0.9% 1, 625 000 ml @ 65 mls/hr IV . [id number] [facility] Rx#:[id number] Oral 780 Output: Urine 300 Estimated Blood Loss 100 Other: Voiding Method Toilet Toilet # Voids 3 # Bowel Movements 0 - Exam PHYSICAL EXAMINATION: GENERAL: The patient is alert and oriented x3, not in any acute distress. Well developed, well nourished. HEENT: Pupils are round and equally reacting to light. EOMI. No scleral icterus. No conjunctival pallor. Normocephalic, atraumatic. No pharyngeal erythema. No thyromegaly. CARDIOVASCULAR: S1 and S2 present. No murmurs, rubs, or gallops. PULMONARY: Chest is clear to auscultation, no wheezing or crackles. ABDOMEN: Soft, nontender, nondistended, normoactive bowel sounds. No palpable organomegaly. MUSCULOSKELETAL: Deferred to orthopedic surgery EXTREMITIES: No cyanosis, clubbing, or pedal edema. NEUROLOGICAL: Gross neurological examination did not reveal any focal deficits. SKIN: No rashes. - Labs CBC & Chem 7: 09/05/17 06:31 Labs: Abnormal Lab Results - Last 24 Hours (Table) 09/05/17 Range/Units 06:31 WBC 3.3 L (3.8-10.6) k/uL RBC 2.93 L (3.80-5.40) m/uL Hgb 8.3 L D (11.4-16.0) gm/dL Hct 26.5 L (34.0-46.0) % Assessment and Plan Plan: -Hypertension: Blood pressure remained the low normal in spite of not taking any antihypertensive medications because of which I'm discontinuing diuretic therapy patient did take her nifedipine yesterday which can be continued and patient will check her blood pressure daily basis take the PCPs office. -Hyperlipidemia continue with fenofibrate and pravastatin -Left hip arthroplasty: DVT prophylaxis and pain management as per primary service. -Osteoarthritis primary
== END 2017-09-05 13:56 | disposition home health service (06) | DRG 470 ==
LOC: 2ORMAIN 05:45 → 3SUR 08:36
PROVIDERS: ADMIT Orthopaedic Surgery; ATTEND Orthopaedic Surgery
PROC: 0SRB06A Replacement of Left Hip Joint with Oxidized Zirconium on Polyethylene Synthetic Substitute, Uncemented, Open Approach (ICD-10-PCS; principal; 2017-09-04 07:00)
DX: M16.12 Unilateral primary osteoarthritis, left hip (principal); I10 Essential (primary) hypertension; E78.5 Hyperlipidemia, unspecified; Z96.641 Presence of right artificial hip joint; Z85.3 Personal history of malignant neoplasm of breast; Z92.3 Personal history of irradiation; Z90.710 Acquired absence of both cervix and uterus; Z79.899 Other long term (current) drug therapy
CPT/HCPCS: 36415; 73501; 85025; 86850; 86891; 86900; 86901

== ENCOUNTER → 2020-08-27 | Outpatient (CLI) | payer MEDICARE ==
[2020-08-27 13:45] LABS: HCT 41.5 % (34.0-46.0); MCH 32.9 pg (25.0-35.0); MCHC 33.7 g/dL (31.0-37.0); MCV 97.5 fL (80.0-100.0); Mean Platelet Volume 9.9; Platelet Count 219 k/uL (150-450); RBC 4.25 m/uL (3.80-5.40); RDW 13.4 % (11.5-15.5); WBC 6.9 k/uL (3.8-10.6)
[2020-08-27 13:57] LABS: ALT 37 U/L (4-34); African American GFR (CKD) >90 (>60 ml/min/1.73 sqM); Albumin 3.8 g/dL (3.5-5.0); Anion Gap 8 mmol/L; Blood Urea Nitrogen 18 mg/dL (7-17); Calcium 9.9 mg/dL (8.4-10.2); Carbon Dioxide 26 mmol/L (22-30); Chloride 101 mmol/L (98-107); Glucose 137 mg/dL (74-99); Non-African American GFR(CKD) 89 (>60 ml/min/1.73 sqM); Sodium 135 mmol/L (137-145); Total Bilirubin 1.1 mg/dL (0.2-1.3); Total Protein 6.3 g/dL (6.3-8.2)
[2020-08-27 13:58] LABS: AST 95 U/L (14-36); Alkaline Phosphatase 111 U/L (38-126)
--- NOTE | 2020-08-27 14:40 | CT ---
CT CHEST FOR PULMONARY EMBOLISM. EXAMINATION TYPE: CT angio chest DATE OF EXAM: 08/27/2020 INDICATION: Shortness of breath and cough x1 week. History of pancreatic cancer. CT DLP: 269.3 mGycm, Automated exposure control for dose reduction was used. CONTRAST: Patient injected with 57ml mL of Isovue 370. COMPARISON: None TECHNIQUE: CT of the chest is performed on a spiral scan at 2 mm thick sections. Study is performed with intravenous contrast timed for evaluation for pulmonary embolism. This will limit additional po rtions of the evaluation. 3-D MIP images reconstructed by the technologist are reviewed on the compu ter in the coronal and sagittal planes. FINDINGS: No persistent filling defects are evident to suggest an acute pulmonary embolism. No mediastinal or hilar adenopathy enlarged by CT criteria is evident. The ascending aorta diameter at the level of the main pulmonary artery is 3.1 cm. The main pulmonary artery diameter at the bifur cation is 2.4 cm. Minimal pericardial effusion is present. There is a small to moderate left pleural effusion and a minimal right pleural effusion. Limited CT section through the upper abdomen. Postsurgical pancreatic changes are evident. There is a calcified structure measuring 1.6 cm adjacent to the right internal jugular vein. Advanced degenerative changes of the left shoulder are noted. IMPRESSIONS: 1. No acute pulmonary embolism. 2. Postsurgical pancreatic changes within the [id number]. 3. Small left and minimal right pleural effusion. Minimal pericardial effusion is present. 4. Calcified round structure adjacent to the right jugular vein.
== END | disposition home or self-care (01) ==
LOC: RADCTMAIN 12:50
PROVIDERS: ATTEND Internal Medicine Hematology & Oncology
DX: J90 Pleural effusion, not elsewhere classified (principal); I31.3 Pericardial effusion (noninflammatory); Z85.07 Personal history of malignant neoplasm of pancreas
CPT/HCPCS: 80053; 85027; 86301; 71275; 36415; Q9967